=== PATIENT | female | born 1965 ===

== ENCOUNTER 2018-03-09 09:11 | Outpatient (CLI) | payer OTHER ==
[~2018-03-09] VITALS: Ht 152.4 cm; Wt 58.1 kg
== END 2018-03-09 09:25 | disposition home or self-care (01) ==
LOC: OFIC 805 09:11
DX: J31.0 Chronic rhinitis (principal); J34.3 Hypertrophy of nasal turbinates; H61.23 Impacted cerumen, bilateral; H69.83 Other specified disorders of Eustachian tube, bilateral

== ENCOUNTER 2018-12-07 12:09 | Outpatient (CLI) | payer OTHER ==
[~2018-12-07] VITALS: Ht 152.4 cm; Wt 55.8 kg
== END 2018-12-07 12:25 | disposition home or self-care (01) ==
LOC: OFIC 805 12:09
DX: H60.8X3 Other otitis externa, bilateral (principal); H61.23 Impacted cerumen, bilateral; J31.0 Chronic rhinitis